=== PATIENT | male | born 1970 | race Hispanic/Latino ===

== ENCOUNTER 2019-09-03 23:34 | Emergency (ER) | payer OTHER, SELFPAY ==
[2019-09-04] MEDS ORDERED: traMADol HCl 50 MG TAB ONE (00:47)
--- NOTE | 2019-09-04 07:36 | RAD ---
PA CHEST AND RIGHT RIBS: INDICATION: Injury. FINDINGS: The PA chest shows no evidence of infiltrate or pneumothorax. No evidence of right-sided rib fractur e identified. IMPRESSION: No acute findings. POS: AGW
--- NOTE | 2019-09-04 07:37 | RAD ---
SACRUM AND COCCYX 3 VIEWS: HISTORY: Fall with injury. FINDINGS: No evidence of fracture identified. No osseous abnormality identified. IMPRESSION: No acute finding. POS: AGW
== END 2019-09-04 01:00 | disposition home or self-care (01) ==
LOC: NAV ERS 23:34
DX: S39.012A Strain of muscle, fascia and tendon of lower back, initial encounter (principal); S20.211A Contusion of right front wall of thorax, initial encounter; I10 Essential (primary) hypertension; M10.9 Gout, unspecified; M19.90 Unspecified osteoarthritis, unspecified site; F17.290 Nicotine dependence, other tobacco product, uncomplicated; Z79.52 Long term (current) use of systemic steroids; Z79.899 Other long term (current) drug therapy; X50.0XXA Overexertion from strenuous movement or load, initial encounter; Y92.481 Parking lot as the place of occurrence of the external cause
CPT/HCPCS: 72220